=== PATIENT | female | born 1940 | race African-American/Black ===

== ENCOUNTER 2018-05-07 14:32 | Inpatient (IN) | payer OTHER, MEDICAID ==
[~2018-05-07] VITALS: Ht 167.6 cm; Wt 83.0 kg
[~2018-05-07 14:32] MED LIST: AMLO5TAB4 PO; FERR-63 PO; FLUT1DIS3 INH; FURO80TA87 PO; GABA300C PO; LOSA25TA12 PO; METO2.5T14 PO; PROT20 PO
[2018-05-07] MEDS ORDERED: ASPIRIN 81MG TABLET PO ONE (15:45)
[2018-05-07 18:38] LABS: BASOPHILS % 0.9 % (0.0-2.0); EOSINOPHILS % 4.8 % (0.0-5.0); HEMATOCRIT. 30.8 % (36.0-48.0); HEMOGLOBIN. 9.8 g/dL (12.0-16.0); LYMPHOCYTES % 17.6 % (20.0-50.0); MEAN CORPUSCULAR HEMOGLOBIN 29.4 pg (28.0-32.0); MEAN CORPUSCULAR VOLUME 92.1 fL (81.0-99.0); MEAN PLATELET VOLUME 9.2 fl (7.4-10.4); MONOCYTES % 7.4 % (2.0-8.0); NEUTROPHILS % 69.3 % (40.0-76.0); PLATELET 209 x1000/uL (130-400); RED BLOOD CELL COUNT 3.34 mill/uL (4.2-5.4); RED CELL DISTRIBUTION WIDTH 17.3 % (11.6-14.6)
[2018-05-07 18:42] LABS: CHLORIDE 99 mEq/L (98-107)
[2018-05-07 18:43] LABS: PARTIAL THROMBOPLASTIN TIME 27.5 sec (23.4-31.0); PROTHROMBIN TIME 10.5 sec (9.1-11.1)
[2018-05-07] MEDS ORDERED: ACETAMINOPHEN 325MG TABLET PO ONE (21:15)
[2018-05-07 23:33] VITALS: BP 128/77
[2018-05-08] VITALS: BP 128/77
[2018-05-08] MEDS ORDERED: CLONIDINE 0.1MG TABLET PO PRN (00:30)
[2018-05-08] MEDS ORDERED: HYDROCODONE/ACETAMINOPHEN 5/325MG TABLET PO PRN (00:30)
[2018-05-08] MEDS ORDERED: ONDANSETRON HCL 4MG/2ML INJ IV PRN (00:30)
[2018-05-08] MEDS: FUROSEMIDE 40MG/4ML VIAL IV SCH ×3 (01:52→16:42)
[2018-05-08 04:00] VITALS: BP 107/49
[2018-05-08 07:41] LABS: CREATINE KINASE 37 IU/L (26-192); CREATINE KINASE MB FRACTION < 1.0 ng/mL (0.5-3.6)
[2018-05-08 08:00] VITALS: BP 127/61
[2018-05-08] MEDS: AMLODIPINE 5MG TABLET PO SCH (09:00)
[2018-05-08 12:00] VITALS: BP 127/61
[2018-05-08 16:00] VITALS: BP 120/50
[2018-05-08] MEDS: LOSARTAN POTASSIUM 25 MG TABLET PO SCH (16:41)
[2018-05-08] MEDS: ASPIRIN 81MG EC TABLET PO SCH (16:41)
[2018-05-08 18:28] LABS: CREATINE KINASE MB FRACTION 1.1 ng/mL (0.5-3.6)
[2018-05-08] MEDS ORDERED: FLUCONAZOLE 150MG TABLET PO NR (21:00)
[2018-05-08] MEDS ORDERED: EPOETIN ALFA 4000UNITS/ML VIAL SUBCUT SCH (21:00)
[2018-05-09] VITALS: BP 146/62
[2018-05-09 04:00] VITALS: BP 141/66
[2018-05-09] MEDS: FUROSEMIDE 40MG/4ML VIAL IV SCH ×4 (05:28→22:35)
[2018-05-09 07:51] LABS: HEMATOCRIT 30.1 % (36.0-48.0); HEMOGLOBIN 9.7 g/dL (12.0-16.0); MEAN CORPUSCULAR HEMOGLOBIN 29.4 pg (28.0-32.0); MEAN CORPUSCULAR VOLUME 90.8 fL (81.0-99.0); PLATELET 204 x1000/uL (130-400); RED BLOOD CELL COUNT 3.31 mill/uL (4.2-5.4); RED CELL DISTRIBUTION WIDTH 17.2 % (11.6-14.6)
[2018-05-09 08:00] VITALS: BP 147/71
[2018-05-09] MEDS: LOSARTAN POTASSIUM 25 MG TABLET PO SCH (08:56)
[2018-05-09] MEDS: AMLODIPINE 5MG TABLET PO SCH (08:56)
[2018-05-09] MEDS: ASPIRIN 81MG EC TABLET PO SCH (08:56)
[2018-05-09 12:00] VITALS: BP 126/64
[2018-05-09 13:21] LABS: BG BASE EXCESS 2.9 mmol/L (-2.0-2.0); BG DEOXYHEMOGLOBIN 9.7 % (0.0-5.0); BG FRACTION INSPIRED OXYGEN 21; BG HCO3 ACT 27.5 mmol/L (22.0-26.0); BG METHEMOGLOBIN 0.1 % (0.0-1.5); BG OXYGEN SATURATION 90.2 % (92.0-98.5); BG OXYHEMOGLOBIN 89.2 % (94.0-97.0); BG PCO2 42.5 mmHg (35.0-45.0); BG PH 7.429 (7.350-7.450); BG PO2 61.9 mmHg (75.0-100.0); BG SAMPLE SITE LEFT RADIAL; BG VENT MODE ROOM AIR
[2018-05-09 16:00] VITALS: BP 133/66
[2018-05-09 20:00] VITALS: BP 139/67
[2018-05-10] VITALS: BP 135/69
[2018-05-10 04:00] VITALS: BP 130/63
[2018-05-10] MEDS: FUROSEMIDE 40MG/4ML VIAL IV SCH ×2 (05:04→17:25)
[2018-05-10 07:49] LABS: MEAN CORPUSCULAR HEMOGLOBIN 29.1 pg (28.0-32.0); PLATELET 210 x1000/uL (130-400); RED BLOOD CELL COUNT 3.44 mill/uL (4.2-5.4); RED CELL DISTRIBUTION WIDTH 17.2 % (11.6-14.6)
[2018-05-10 08:00] VITALS: BP 144/70
[2018-05-10] MEDS: LOSARTAN POTASSIUM 25 MG TABLET PO SCH (09:00)
[2018-05-10] MEDS: AMLODIPINE 5MG TABLET PO SCH (09:00)
[2018-05-10 12:00] VITALS: BP 140/68
[2018-05-10] MEDS ORDERED: SODIUM POLYSTYRENE SULFONATE 15 G/60 ML BOT PO NR (13:45)
[2018-05-10 16:00] VITALS: BP 143/80
[2018-05-10] MEDS: ASPIRIN 81MG EC TABLET PO SCH (17:25)
[2018-05-10 20:14] VITALS: BP 158/82
== END 2018-05-10 22:20 | disposition home or self-care (01) | DRG 291 ==
LOC: ER 14:32 → 7WST 19:17 → EDBEDREQ 19:20 → EDBEDREQTM 19:20 → ENRESERV 21:35
PROVIDERS: ADMIT Internal Medicine; ATTEND Internal Medicine
PROC: 5A1D70Z Performance of Urinary Filtration, Intermittent, Less than 6 Hours Per Day (ICD-10-PCS; principal; 2018-05-08)
PROC: 5A1D70Z Performance of Urinary Filtration, Intermittent, Less than 6 Hours Per Day (ICD-10-PCS; 2018-05-09)
PROC: 5A1D70Z Performance of Urinary Filtration, Intermittent, Less than 6 Hours Per Day (ICD-10-PCS; 2018-05-10)
DX: I13.2 Hypertensive heart and chronic kidney disease with heart failure and with stage 5 chronic kidney disease, or end stage renal disease (principal); I50.23 Acute on chronic systolic (congestive) heart failure; N18.6 End stage renal disease; D64.9 Anemia, unspecified; E87.5 Hyperkalemia; E11.22 Type 2 diabetes mellitus with diabetic chronic kidney disease; I25.10 Atherosclerotic heart disease of native coronary artery without angina pectoris; M17.0 Bilateral primary osteoarthritis of knee; I25.5 Ischemic cardiomyopathy; N76.0 Acute vaginitis; Z86.73 Personal history of transient ischemic attack (TIA), and cerebral infarction without residual deficits; Z95.810 Presence of automatic (implantable) cardiac defibrillator; Z99.2 Dependence on renal dialysis; Z88.0 Allergy status to penicillin; Z88.2 Allergy status to sulfonamides; Z88.1 Allergy status to other antibiotic agents; Z79.899 Other long term (current) drug therapy
CPT/HCPCS: 36415; 36600; 71045; 80048; 82375; 82550; 82553; 82805; 83605; 83880; 84484; 85027; 93005; 93306; 93970; 97162; 99285; J0885; J1940; J7030

== ENCOUNTER 2018-10-03 19:41 | Emergency (ER) | payer OTHER, MEDICAID ==
[~2018-10-03] VITALS: Ht 162.6 cm; Wt 52.0 kg
[2018-10-03] MEDS ORDERED: OXYMETAZOLINE HCL NASAL SPRAY 15ML BOTHNSTRLS STA (20:24)
[2018-10-03 20:37] VITALS: BP 132/77
[2018-10-03] MEDS ORDERED: ONDANSETRON 4MG ODT PO ONE (21:15)
== END 2018-10-04 00:51 | disposition home or self-care (01) ==
LOC: ER 20:22
DX: R04.0 Epistaxis (principal); I12.9 Hypertensive chronic kidney disease with stage 1 through stage 4 chronic kidney disease, or unspecified chronic kidney disease; N18.9 Chronic kidney disease, unspecified; Z99.2 Dependence on renal dialysis; Z86.73 Personal history of transient ischemic attack (TIA), and cerebral infarction without residual deficits; Z88.0 Allergy status to penicillin; Z88.1 Allergy status to other antibiotic agents; Z88.2 Allergy status to sulfonamides; Z88.9 Allergy status to unspecified drugs, medicaments and biological substances; Z98.890 Other specified postprocedural states
CPT/HCPCS: 99283

== ENCOUNTER 2018-10-15 12:51 | Inpatient (IN) | payer MEDICARE, MEDICAID ==
[~2018-10-15] VITALS: Ht 154.9 cm; Wt 76.7 kg
[2018-10-15 13:30] LABS: BASOPHILS % 0.8 % (0.0-2.0); EOSINOPHILS % 3.6 % (0.0-5.0); HEMATOCRIT. 34.7 % (36.0-48.0); HEMOGLOBIN. 10.9 g/dL (12.0-16.0); LYMPHOCYTES % 14.2 % (20.0-50.0); MEAN CORPUSCULAR HEMOGLOBIN 27.3 pg (28.0-32.0); MEAN CORPUSCULAR VOLUME 86.5 fL (81.0-99.0); MEAN PLATELET VOLUME 9.2 fl (7.4-10.4); MONOCYTES % 7.9 % (2.0-8.0); NEUTROPHILS % 73.5 % (40.0-76.0); PLATELET 224 x1000/uL (130-400); RED BLOOD CELL COUNT 4.01 mill/uL (4.2-5.4); RED CELL DISTRIBUTION WIDTH 22.5 % (11.6-14.6)
[2018-10-15 13:34] LABS: CHLORIDE 95 mEq/L (98-107)
[2018-10-15 13:40] LABS: INR 1.1; PARTIAL THROMBOPLASTIN TIME 24.7 sec (23.4-31.0); PROTHROMBIN TIME 10.7 sec (9.1-11.1)
[2018-10-15 13:43] LABS: PLATELET ESTIMATE NORMAL
[2018-10-15] MEDS ORDERED: IOHEXOL-350 100 ML BOTTLE ONE (13:59)
[2018-10-15] MEDS ORDERED: SODIUM POLYSTYRENE SULFONATE 15 G/60 ML BOT PO ONE (15:00)
[2018-10-15] MEDS ORDERED: INSULIN REGULAR (HUMULIN R) 300UNITS/3ML IV ONE (15:00)
[2018-10-15] MEDS ORDERED: ASPIRIN 325MG EC TABLET PO ONE (15:00)
[2018-10-15] MEDS ORDERED: SODIUM BICARBONATE 8.4% 1 MEQ/ML 50ML SYR IV ONE (15:00)
[2018-10-15] MEDS ORDERED: ALBUTEROL (0.083%) 2.5MG/3ML NEB HHN ONE (15:00)
[2018-10-15] MEDS ORDERED: DEXTROSE 50% WATER 50ML SYRINGE IV ONE (15:00)
[2018-10-15] MEDS ORDERED: ASPIRIN 300MG SUPP PR ONE (15:30)
[2018-10-15] MEDS ORDERED: INSULIN REGULAR (HUMULIN R) 300UNITS/3ML IV NR (17:30)
[2018-10-16] VITALS (7 sets, daily range): BP systolic 115–160; BP diastolic 61–98
[2018-10-16] MEDS ORDERED: HYDRALAZINE 20MG/ML VIAL IV PRN (01:00)
[2018-10-16] MEDS ORDERED: DEXT 5%/0.45% NACL 1000ML 1,000 ML IV SCH (02:30)
[2018-10-16] MEDS: HEPARIN 5000 UNITS/ML VIAL SUBCUT SCH ×3 (06:00→22:00)
[2018-10-16 07:00] LABS: BASOPHILS % 0.9 % (0.0-2.0); EOSINOPHILS % 3.2 % (0.0-5.0); HEMATOCRIT. 32.4 % (36.0-48.0); HEMOGLOBIN. 10.3 g/dL (12.0-16.0); LYMPHOCYTES % 11.3 % (20.0-50.0); MEAN CORPUSCULAR HEMOGLOBIN 27.5 pg (28.0-32.0); MEAN CORPUSCULAR VOLUME 86.2 fL (81.0-99.0); MEAN PLATELET VOLUME 9.5 fl (7.4-10.4); MONOCYTES % 7.3 % (2.0-8.0); NEUTROPHILS % 77.3 % (40.0-76.0); PLATELET 236 x1000/uL (130-400); RED BLOOD CELL COUNT 3.76 mill/uL (4.2-5.4); RED CELL DISTRIBUTION WIDTH 23.1 % (11.6-14.6)
[2018-10-16] MEDS ORDERED: PANTOPRAZOLE SODIUM 40 MG/VIAL IV SCH (09:00)
[2018-10-16] MEDS ORDERED: ASPI-1079 PO (11:24)
[2018-10-16] MEDS ORDERED: GABA-531 MT (11:24)
[2018-10-16] MEDS ORDERED: SEVE800T8 MT (11:29)
[2018-10-16] MEDS ORDERED: SIMV40TA5 MT (11:29)
[2018-10-16] MEDS ORDERED: METO-293 MT (11:29)
[2018-10-16] MEDS ORDERED: LOPE2CAP MT (11:29)
[2018-10-16] MEDS ORDERED: METO-396 MT (11:29)
[2018-10-16] MEDS ORDERED: OMEP20CA10 MT (11:29)
[2018-10-16] MEDS ORDERED: MEDICATION NOT ON FORMULARY EA (Metoprolol Succinate 1 TAB) MT SCH (17:15)
[2018-10-16] MEDS ORDERED: ONDANSETRON HCL 4MG/2ML INJ IV PRN (17:30)
[2018-10-16] MEDS ORDERED: ACETAMINOPHEN 650MG SUPP PR PRN (17:30)
[2018-10-16] MEDS ORDERED: ACETAMINOPHEN 325MG TABLET PO PRN (17:30)
[2018-10-16] MEDS ORDERED: DIPHENHYDRAMINE 50MG/ML VIAL IV PRN (17:30)
[2018-10-16] MEDS ORDERED: DOCUSATE SODIUM 100MG CAPSULE PO PRN (17:30)
[2018-10-16 17:46] LABS: BG BASE EXCESS 3.1 mmol/L (-2.0-2.0); BG CARBOXYHEMOGLOBIN 1.3 % (0.5-1.5); BG FRACTION INSPIRED OXYGEN 21; BG HCO3 ACT 27.8 mmol/L (22.0-26.0); BG METHEMOGLOBIN 0.3 % (0.0-1.5); BG OXYGEN SATURATION 92.9 % (92.0-98.5); BG OXYHEMOGLOBIN 91.4 % (94.0-97.0); BG PCO2 42.6 mmHg (35.0-45.0); BG PH 7.432 (7.350-7.450); BG PO2 67.6 mmHg (75.0-100.0); BG SAMPLE SITE LEFT RADIAL; BG VENT MODE ROOM AIR
[2018-10-16] MEDS ORDERED: SODIUM POLYSTYRENE SULFONATE 15 G/60 ML BOT PO NR (18:30)
[2018-10-16] MEDS: SEVELAMER CARBONATE 800 MG TABLET PO SCH (19:04)
[2018-10-16] MEDS ORDERED: MEDICATION NOT ON FORMULARY EA (Simvastatin 1 TAB) MT SCH (21:00)
[2018-10-17] VITALS: BP 124/67
[2018-10-17] MEDS: ATORVASTATIN CALCIUM 20MG TABLET PO SCH ×2 (00:08→23:05)
[2018-10-17] MEDS: METOPROLOL TARTRATE 25MG TABLET PO SCH ×2 (00:12→09:07)
[2018-10-17 04:00] VITALS: BP 128/72
[2018-10-17 05:34] LABS: HEMATOCRIT 33.6 % (36.0-48.0); HEMOGLOBIN 10.5 g/dL (12.0-16.0); MEAN CORPUSCULAR HEMOGLOBIN 27.3 pg (28.0-32.0); MEAN CORPUSCULAR VOLUME 87.1 fL (81.0-99.0); PLATELET 229 x1000/uL (130-400); RED BLOOD CELL COUNT 3.86 mill/uL (4.2-5.4); RED CELL DISTRIBUTION WIDTH 22.3 % (11.6-14.6)
[2018-10-17] MEDS: HEPARIN 5000 UNITS/ML VIAL SUBCUT SCH ×3 (07:41→23:07)
[2018-10-17 08:00] VITALS: BP 128/68
[2018-10-17] MEDS: OMEPRAZOLE 20MG CAPSULE EXTENDED RELEASE PO SCH (09:07)
[2018-10-17] MEDS: ASPIRIN 81MG TABLET PO SCH (09:07)
[2018-10-17] MEDS: SEVELAMER CARBONATE 800 MG TABLET PO SCH ×3 (09:07→18:18)
[2018-10-17 12:00] VITALS: BP 118/69
[2018-10-17 16:00] VITALS: BP 99/52
[2018-10-17 20:00] VITALS: BP 112/61
[2018-10-18] VITALS: BP 102/62
[2018-10-18 04:00] VITALS: BP 130/68
[2018-10-18] MEDS: HEPARIN 5000 UNITS/ML VIAL SUBCUT SCH ×3 (07:17→21:15)
[2018-10-18 07:23] LABS: HEMATOCRIT 32.2 % (36.0-48.0); MEAN CORPUSCULAR HEMOGLOBIN 27.4 pg (28.0-32.0); MEAN CORPUSCULAR VOLUME 88.1 fL (81.0-99.0); PLATELET 205 x1000/uL (130-400); RED BLOOD CELL COUNT 3.66 mill/uL (4.2-5.4); RED CELL DISTRIBUTION WIDTH 22.6 % (11.6-14.6)
[2018-10-18] MEDS: METOPROLOL TARTRATE 25MG TABLET PO SCH ×2 (07:27→09:00)
[2018-10-18 08:00] VITALS: BP 109/58
[2018-10-18] MEDS: ASPIRIN 81MG TABLET PO SCH (09:49)
[2018-10-18] MEDS: OMEPRAZOLE 20MG CAPSULE EXTENDED RELEASE PO SCH (09:49)
[2018-10-18] MEDS: SEVELAMER CARBONATE 800 MG TABLET PO SCH ×3 (09:49→18:04)
[2018-10-18] MEDS: MEMANTINE HCL 5MG TABLET PO SCH (09:50)
[2018-10-18] MEDS: CARVEDILOL 3.125 MG TABLET PO SCH ×2 (11:30→21:14)
[2018-10-18 12:00] VITALS: BP 114/74
[2018-10-18 16:00] VITALS: BP 108/64
[2018-10-18 20:49] VITALS: BP 119/59
[2018-10-18] MEDS: ATORVASTATIN CALCIUM 20MG TABLET PO SCH (21:13)
[2018-10-19] VITALS: BP 125/68
[2018-10-19 04:00] VITALS: BP 142/66
[2018-10-19] MEDS: HEPARIN 5000 UNITS/ML VIAL SUBCUT SCH ×2 (05:40→14:10)
[2018-10-19 06:23] LABS: BASOPHILS % 0.5 % (0.0-2.0); EOSINOPHILS % 10.7 % (0.0-5.0); HEMATOCRIT. 29.1 % (36.0-48.0); HEMOGLOBIN. 9.4 g/dL (12.0-16.0); LYMPHOCYTES % 15.9 % (20.0-50.0); MEAN CORPUSCULAR HEMOGLOBIN 28.1 pg (28.0-32.0); MEAN CORPUSCULAR VOLUME 86.8 fL (81.0-99.0); MEAN PLATELET VOLUME 8.9 fl (7.4-10.4); MONOCYTES % 9.1 % (2.0-8.0); NEUTROPHILS % 63.8 % (40.0-76.0); PLATELET 186 x1000/uL (130-400); RED BLOOD CELL COUNT 3.35 mill/uL (4.2-5.4); RED CELL DISTRIBUTION WIDTH 21.5 % (11.6-14.6)
[2018-10-19] MEDS: SEVELAMER CARBONATE 800 MG TABLET PO SCH ×3 (07:40→14:10)
[2018-10-19 08:00] VITALS: BP 125/68
[2018-10-19] MEDS: ASPIRIN 81MG TABLET PO SCH (09:00)
[2018-10-19] MEDS: MEMANTINE HCL 5MG TABLET PO SCH (09:00)
[2018-10-19] MEDS: OMEPRAZOLE 20MG CAPSULE EXTENDED RELEASE PO SCH (09:00)
[2018-10-19 12:00] VITALS: BP 118/72
[2018-10-19 16:00] VITALS: BP 112/64
[2018-10-19 20:00] VITALS: BP 98/51
[2018-10-19] MEDS ORDERED: CARVEDILOL 3.125 MG TABLET PO SCH (21:00)
== END 2018-10-19 21:15 | DRG 280 ==
LOC: ER 12:51 → EDBEDREQ 14:54 → 8WST 16:37 → EDBEDREQ 16:44 → EDBEDREQTM 16:44 → ENRESERV 21:18
PROVIDERS: ADMIT Internal Medicine; ATTEND Internal Medicine
PROC: 5A1D70Z Performance of Urinary Filtration, Intermittent, Less than 6 Hours Per Day (ICD-10-PCS; principal; 2018-10-15)
PROC: 5A1D70Z Performance of Urinary Filtration, Intermittent, Less than 6 Hours Per Day (ICD-10-PCS; 2018-10-18)
DX: I21.4 Non-ST elevation (NSTEMI) myocardial infarction (principal); I50.23 Acute on chronic systolic (congestive) heart failure; G92 Toxic encephalopathy; N18.6 End stage renal disease; I13.2 Hypertensive heart and chronic kidney disease with heart failure and with stage 5 chronic kidney disease, or end stage renal disease; I69.192 Facial weakness following nontraumatic intracerebral hemorrhage; Z99.2 Dependence on renal dialysis; D64.9 Anemia, unspecified; E87.5 Hyperkalemia; I25.10 Atherosclerotic heart disease of native coronary artery without angina pectoris; F03.90 Unspecified dementia, unspecified severity, without behavioral disturbance, psychotic disturbance, mood disturbance, and anxiety; I25.5 Ischemic cardiomyopathy; E11.22 Type 2 diabetes mellitus with diabetic chronic kidney disease; I27.21 Secondary pulmonary arterial hypertension; M17.0 Bilateral primary osteoarthritis of knee; Z88.1 Allergy status to other antibiotic agents; I25.2 Old myocardial infarction; Z95.810 Presence of automatic (implantable) cardiac defibrillator; Z88.0 Allergy status to penicillin; Z88.2 Allergy status to sulfonamides; Z88.8 Allergy status to other drugs, medicaments and biological substances
CPT/HCPCS: 36415; 36600; 70496; 70498; 71045; 80048; 80061; 80355; 82140; 82375; 82805; 82962; 83036; 83735; 83880; 84145; 84484; 84550; 85027; 92610; 93005; 93306; 93970; 94644; 96374; 96375; 99285; A6261; C1893; J1644; J1815; J3490; J7611; Q9967

== ENCOUNTER 2018-11-05 12:53 | Emergency (ER) | payer OTHER, MEDICAID ==
[~2018-11-05] VITALS: Ht 152.4 cm; Wt 78.0 kg
[~2018-11-05 12:53] MED LIST changes: -AMLO5TAB4 PO; +ASPI-1079 PO; -FERR-63 PO; -FLUT1DIS3 INH; -FURO80TA87 PO; +GABA-531 MT; -GABA300C PO; +LOPE2CAP MT; -LOSA25TA12 PO; +METO-293 MT; +METO-396 MT; -METO2.5T14 PO; +OMEP20CA10 MT; -PROT20 PO; +SEVE800T8 MT; +SIMV40TA5 MT
[2018-11-05 14:28] LABS: BASOPHILS % 0.7 % (0.0-2.0); EOSINOPHILS % 5.8 % (0.0-5.0); HEMATOCRIT. 33.8 % (36.0-48.0); HEMOGLOBIN. 11.1 g/dL (12.0-16.0); LYMPHOCYTES % 19.6 % (20.0-50.0); MEAN CORPUSCULAR HEMOGLOBIN 28.2 pg (28.0-32.0); MEAN CORPUSCULAR VOLUME 85.9 fL (81.0-99.0); MEAN PLATELET VOLUME 8.9 fl (7.4-10.4); MONOCYTES % 6.1 % (2.0-8.0); NEUTROPHILS % 67.8 % (40.0-76.0); PLATELET 215 x1000/uL (130-400); RED BLOOD CELL COUNT 3.93 mill/uL (4.2-5.4); RED CELL DISTRIBUTION WIDTH 19.9 % (11.6-14.6)
[2018-11-05 14:33] LABS: CHLORIDE 97 mEq/L (98-107)
[2018-11-05 14:34] LABS: INR 1.1; PARTIAL THROMBOPLASTIN TIME 29.4 sec (23.4-31.0); PROTHROMBIN TIME 11.1 sec (9.6-11.0)
[2018-11-05 14:39] LABS: PHOSPHORUS 4.3 mg/dL (2.5-4.9)
[2018-11-05 20:39] VITALS: BP 109/68
== END 2018-11-05 20:45 ==
LOC: ER 12:53 → EDBEDREQ 14:00 → ER 20:45 → CANBEDREQ 20:47
DX: T82.868A Thrombosis due to vascular prosthetic devices, implants and grafts, initial encounter (principal); Y82.8 Other medical devices associated with adverse incidents; Y92.89 Other specified places as the place of occurrence of the external cause; I12.0 Hypertensive chronic kidney disease with stage 5 chronic kidney disease or end stage renal disease; N18.6 End stage renal disease; Z99.2 Dependence on renal dialysis; E87.8 Other disorders of electrolyte and fluid balance, not elsewhere classified; R79.89 Other specified abnormal findings of blood chemistry
CPT/HCPCS: 36415; 71045; 83735; 84100; 84484; 86850; 86900; 93005; 99284

== ENCOUNTER 2018-11-20 14:28 | Inpatient (IN) | payer OTHER, MEDICAID ==
[~2018-11-20] VITALS: Ht 152.4 cm; Wt 65.3 kg
[2018-11-20 15:57] LABS: BASOPHILS % 0.6 % (0.0-2.0); EOSINOPHILS % 8.5 % (0.0-5.0); HEMATOCRIT. 33.8 % (36.0-48.0); HEMOGLOBIN. 10.9 g/dL (12.0-16.0); LYMPHOCYTES % 16.4 % (20.0-50.0); MEAN CORPUSCULAR HEMOGLOBIN 27.7 pg (28.0-32.0); MEAN CORPUSCULAR VOLUME 85.4 fL (81.0-99.0); MEAN PLATELET VOLUME 8.8 fl (7.4-10.4); MONOCYTES % 8.8 % (2.0-8.0); NEUTROPHILS % 65.7 % (40.0-76.0); PLATELET 188 x1000/uL (130-400); RED BLOOD CELL COUNT 3.96 mill/uL (4.2-5.4); RED CELL DISTRIBUTION WIDTH 18.4 % (11.6-14.6)
[2018-11-20 16:02] LABS: CHLORIDE 94 mEq/L (98-107); INR 1.1; PROTHROMBIN TIME 10.8 sec (9.6-11.0)
[2018-11-21] VITALS (7 sets, daily range): BP systolic 104–124; BP diastolic 65–71
[2018-11-21] MEDS ORDERED: ACETAMINOPHEN 325MG TABLET PO PRN (01:15)
[2018-11-21] MEDS ORDERED: OMEP20TA2 PO (01:34)
[2018-11-21] MEDS ORDERED: HYDR-4133 PO (01:34)
[2018-11-21] MEDS ORDERED: NA P230E RC (01:34)
[2018-11-21] MEDS ORDERED: MEMA5TAB15 PO (01:34)
[2018-11-21] MEDS ORDERED: FOLI0.8T23 MT (01:34)
[2018-11-21] MEDS ORDERED: REN800 PO (01:34)
[2018-11-21] MEDS ORDERED: BISA10SU62 RC (01:34)
[2018-11-21] MEDS ORDERED: DOCU-138 PO (01:34)
[2018-11-21] MEDS ORDERED: B50 GT (01:34)
[2018-11-21] MEDS ORDERED: FEO PR (01:34)
[2018-11-21] MEDS ORDERED: COR6 MT (01:34)
[2018-11-21] MEDS: HEPARIN 5000 UNITS/ML VIAL SUBCUT SCH ×2 (09:00→22:00)
[2018-11-21] MEDS: ASPIRIN 81MG TABLET PO SCH (09:00)
[2018-11-21] MEDS: PANTOPRAZOLE 40MG DR TABLET PO SCH (09:36)
[2018-11-21] MEDS: CARVEDILOL 6.25 MG TABLET PO SCH ×2 (09:37→22:01)
[2018-11-21] MEDS ORDERED: LORAZEPAM 0.5MG TABLET PO PRN (10:30)
[2018-11-21] MEDS ORDERED: ONDANSETRON 4MG ODT PO PRN (10:30)
[2018-11-21] MEDS ORDERED: DOCUSATE SODIUM 100MG CAPSULE PO PRN (10:30)
[2018-11-21] MEDS ORDERED: CLONIDINE 0.1MG TABLET PO PRN (13:00)
[2018-11-21 17:06] LABS: BASOPHILS % 0.6 % (0.0-2.0); EOSINOPHILS % 7.5 % (0.0-5.0); HEMATOCRIT. 34.3 % (36.0-48.0); LYMPHOCYTES % 13.8 % (20.0-50.0); MEAN CORPUSCULAR HEMOGLOBIN 27.7 pg (28.0-32.0); MEAN PLATELET VOLUME 8.8 fl (7.4-10.4); MONOCYTES % 6.7 % (2.0-8.0); NEUTROPHILS % 71.4 % (40.0-76.0); PLATELET 188 x1000/uL (130-400); RED BLOOD CELL COUNT 3.99 mill/uL (4.2-5.4); RED CELL DISTRIBUTION WIDTH 18.2 % (11.6-14.6)
[2018-11-21] MEDS: HYDROCODONE/ACETAMINOPHEN 5/325MG TABLET PO PRN (19:39)
[2018-11-21] MEDS: ATORVASTATIN CALCIUM 20MG TABLET PO SCH (21:59)
[2018-11-21] MEDS: DIPHENHYDRAMINE 50MG/ML VIAL IV PRN (23:28)
[2018-11-22] VITALS: BP 121/67
[2018-11-22 04:00] VITALS: BP 102/58
[2018-11-22 06:31] LABS: HEMATOCRIT 32.3 % (36.0-48.0); HEMOGLOBIN 10.7 g/dL (12.0-16.0); MEAN CORPUSCULAR HEMOGLOBIN 28.2 pg (28.0-32.0); MEAN CORPUSCULAR VOLUME 85.5 fL (81.0-99.0); PLATELET 184 x1000/uL (130-400); RED BLOOD CELL COUNT 3.78 mill/uL (4.2-5.4); RED CELL DISTRIBUTION WIDTH 18.2 % (11.6-14.6)
[2018-11-22] MEDS: PANTOPRAZOLE 40MG DR TABLET PO SCH (06:34)
[2018-11-22] MEDS: DIPHENHYDRAMINE 50MG/ML VIAL IV PRN ×3 (07:19→22:20)
[2018-11-22 08:00] VITALS: BP 108/61
[2018-11-22] MEDS: HEPARIN 5000 UNITS/ML VIAL SUBCUT SCH ×2 (09:00→21:00)
[2018-11-22] MEDS: ASPIRIN 81MG TABLET PO SCH (09:00)
[2018-11-22] MEDS: CARVEDILOL 6.25 MG TABLET PO SCH ×2 (09:00→20:04)
[2018-11-22] MEDS: HYDROCODONE/ACETAMINOPHEN 5/325MG TABLET PO PRN ×2 (09:47→18:48)
[2018-11-22 12:00] VITALS: BP 101/56
[2018-11-22 16:00] VITALS: BP 102/60
[2018-11-22 20:00] VITALS: BP 115/58
[2018-11-22] MEDS: ATORVASTATIN CALCIUM 20MG TABLET PO SCH (20:02)
[2018-11-23] VITALS (21 sets, daily range): BP systolic 101–129; BP diastolic 61–79
[2018-11-23] MEDS: DIPHENHYDRAMINE 50MG/ML VIAL IV PRN (05:53)
[2018-11-23 05:58] LABS: HEMATOCRIT 32.4 % (36.0-48.0); HEMOGLOBIN 10.7 g/dL (12.0-16.0); MEAN CORPUSCULAR HEMOGLOBIN 28.1 pg (28.0-32.0); MEAN CORPUSCULAR VOLUME 85.4 fL (81.0-99.0); PLATELET 200 x1000/uL (130-400); RED CELL DISTRIBUTION WIDTH 18.3 % (11.6-14.6)
[2018-11-23] MEDS: CARVEDILOL 6.25 MG TABLET PO SCH ×2 (09:00→21:00)
[2018-11-23] MEDS: ASPIRIN 81MG TABLET PO SCH (09:00)
[2018-11-23] MEDS: FAMOTIDINE 20MG TABLET PO SCH (09:00)
[2018-11-23] MEDS: HEPARIN 5000 UNITS/ML VIAL SUBCUT SCH ×2 (09:00→21:59)
[2018-11-23] MEDS ORDERED: SODIUM BICARBONATE 4% (2.4MEQ) 5ML VIAL IV ONE (09:39)
[2018-11-23] MEDS ORDERED: LIDOCAINE HCL 1% 20ML VIAL (Pyxis) INJ ONE (09:39)
[2018-11-23] MEDS ORDERED: HEPARIN 1000 UNITS/ML 10ML ONE (09:40)
[2018-11-23] MEDS ORDERED: IOHEXOL-300 100 ML BOTTLE ONE (10:02)
[2018-11-23] MEDS ORDERED: FENTANYL CITRATE/PF 50MCG/ML 2ML VIAL ONE (10:05)
[2018-11-23] MEDS ORDERED: FENTANYL CITRATE/PF 50MCG/ML 2ML VIAL IV SCH (11:00)
[2018-11-23] MEDS: ATORVASTATIN CALCIUM 20MG TABLET PO SCH (21:56)
[2018-11-24] VITALS: BP 102/51
[2018-11-24 04:00] VITALS: BP 103/57
[2018-11-24 07:40] LABS: BASOPHILS % 0.8 % (0.0-2.0); EOSINOPHILS % 8.8 % (0.0-5.0); HEMATOCRIT. 31.9 % (36.0-48.0); HEMOGLOBIN. 10.2 g/dL (12.0-16.0); LYMPHOCYTES % 16.9 % (20.0-50.0); MEAN CORPUSCULAR HEMOGLOBIN 27.4 pg (28.0-32.0); MEAN CORPUSCULAR VOLUME 85.6 fL (81.0-99.0); MONOCYTES % 10.2 % (2.0-8.0); NEUTROPHILS % 63.3 % (40.0-76.0); PLATELET 185 x1000/uL (130-400); RED BLOOD CELL COUNT 3.73 mill/uL (4.2-5.4); RED CELL DISTRIBUTION WIDTH 18.2 % (11.6-14.6)
[2018-11-24 08:00] VITALS: BP 97/51
[2018-11-24] MEDS: CARVEDILOL 6.25 MG TABLET PO SCH (09:00)
[2018-11-24] MEDS: FAMOTIDINE 20MG TABLET PO SCH (09:59)
[2018-11-24] MEDS: HEPARIN 5000 UNITS/ML VIAL SUBCUT SCH (09:59)
[2018-11-24] MEDS: ASPIRIN 81MG TABLET PO SCH (09:59)
[2018-11-24] MEDS ORDERED: FOLIC ACID/VITAMIN B COMP W-C TABLET PO SCH (10:15)
[2018-11-24 12:00] VITALS: BP 117/59
[2018-11-24] MEDS: HYDROCODONE/ACETAMINOPHEN 5/325MG TABLET PO PRN (14:04)
[2018-11-24 17:16] VITALS: BP 116/61
== END 2018-11-24 19:57 | DRG 252 ==
LOC: ER 14:32 → 6EST 17:40 → EDBEDREQSVC 18:07 → EDBEDREQ 18:07 → ENRESERV 20:17 → 6EST 11-21 00:51
PROVIDERS: ADMIT Internal Medicine; ATTEND Internal Medicine
PROC: 5A1D70Z Performance of Urinary Filtration, Intermittent, Less than 6 Hours Per Day (ICD-10-PCS; principal; 2018-11-21)
PROC: 5A1D70Z Performance of Urinary Filtration, Intermittent, Less than 6 Hours Per Day (ICD-10-PCS; 2018-11-23)
PROC: 03C73ZZ Extirpation of Matter from Right Brachial Artery, Percutaneous Approach (ICD-10-PCS; 2018-11-23)
PROC: 05CD3ZZ Extirpation of Matter from Right Cephalic Vein, Percutaneous Approach (ICD-10-PCS; 2018-11-23)
PROC: 057D3DZ Dilation of Right Cephalic Vein with Intraluminal Device, Percutaneous Approach (ICD-10-PCS; 2018-11-23)
PROC: B51W1ZZ Fluoroscopy of Dialysis Shunt/Fistula using Low Osmolar Contrast (ICD-10-PCS; 2018-11-23)
PROC: B5181ZZ Fluoroscopy of Superior Vena Cava using Low Osmolar Contrast (ICD-10-PCS; 2018-11-23)
DX: T82.868A Thrombosis due to vascular prosthetic devices, implants and grafts, initial encounter (principal); N18.6 End stage renal disease; I50.23 Acute on chronic systolic (congestive) heart failure; T82.510A Breakdown (mechanical) of surgically created arteriovenous fistula, initial encounter; I13.2 Hypertensive heart and chronic kidney disease with heart failure and with stage 5 chronic kidney disease, or end stage renal disease; E87.1 Hypo-osmolality and hyponatremia; I25.5 Ischemic cardiomyopathy; D63.8 Anemia in other chronic diseases classified elsewhere; E11.65 Type 2 diabetes mellitus with hyperglycemia; E78.00 Pure hypercholesterolemia, unspecified; E87.5 Hyperkalemia; E11.22 Type 2 diabetes mellitus with diabetic chronic kidney disease; M17.0 Bilateral primary osteoarthritis of knee; I25.10 Atherosclerotic heart disease of native coronary artery without angina pectoris; K21.9 Gastro-esophageal reflux disease without esophagitis; Y83.2 Surgical operation with anastomosis, bypass or graft as the cause of abnormal reaction of the patient, or of later complication, without mention of misadventure at the time of the procedure; Y92.89 Other specified places as the place of occurrence of the external cause; Z86.73 Personal history of transient ischemic attack (TIA), and cerebral infarction without residual deficits; Z91.15 Patient's noncompliance with renal dialysis; Z95.810 Presence of automatic (implantable) cardiac defibrillator; Z99.2 Dependence on renal dialysis; Z88.0 Allergy status to penicillin; Z88.2 Allergy status to sulfonamides; Z88.1 Allergy status to other antibiotic agents; Z88.8 Allergy status to other drugs, medicaments and biological substances; Z79.899 Other long term (current) drug therapy
CPT/HCPCS: 36415; 36906; 71045; 80048; 83036; 85027; 93005; 99152; 99153; 99285; C1725; C1766; C1769; C1876; C2630; J1200; J1644; J3010; J3490; Q9967; G0500